=== PATIENT | female | born 1995 | race Caucasian/White ===

== ENCOUNTER 2016-05-07 18:45 | Emergency (ER) | payer BC ==
[~2016-05-07] VITALS: Ht 175.3 cm; Wt 62.6 kg
[~2016-05-07 18:45] MED LIST: COUMADIN1 MG; NAPROSYN500 MG PO; NEXIUM20 MG; PEPCID20 MG PO; SUMATRIPTAN SUC50 MG PO
[2016-05-07 19:39] LABS: CHLORIDE 105 mEq/L (99-109); HEMATOCRIT 39.8 % (36.0-46.0); MCH 31.6 PG (29.0-34.0); MCHC 35.9 G/DL (30.0-36.0); MCV 87.9 FL (83-99); MEAN PLAT.VOLUME 9.9 uM^3 (9.5-12.4); PLATELET COUNT 242 K/uL (156-360); POTASSIUM 3.7 mEq/L (3.7-5.4); RBC DIS.WIDTH-CV 12.3 % (11.8-14.6); RBC DIS.WIDTH-SD 38.9 % (39-53); RED BLOOD COUNT 4.53 M/uL (3.80-5.20); SODIUM 138 mEq/L (136-147); WHITE BLOOD COUNT 6.4 K/uL (4.1-10.2)
[2016-05-07 19:40] LABS: GLUCOSE 90 mg/dL (70-99)
[2016-05-07 19:42] LABS: ANION GAP 10 MEQ/L (2-14)
[2016-05-07 19:44] LABS: GFR ESTIMATE (CALCULATED) > 59 mL/min/
[2016-05-07 19:45] LABS: UREA NITROGEN (BUN) 10 mg/dL (9-23)
[2016-05-07 19:50] LABS: TROP-I INTERPRETATION NEGATIVE; TROPONIN-I < 0.01 ng/mL (0.0-0.30)
[2016-05-08 00:57] LABS: TOTAL BILIRUBIN 0.3 mg/dL (0.0-1.0)
[2016-05-08 00:58] LABS: ALKALINE PHOSPHATASE 60 IU/L (3-129)
[2016-05-08 01:01] LABS: DIRECT BILIRUBIN 0.1 mg/dL (0.0-0.3)
[2016-05-08 01:02] LABS: LIPASE 62 U/L (1.0-51.0)
[2016-05-08] MEDS ORDERED: PRILOSEC OTC20 MG PO (02:01)
[2016-05-08] MEDS ORDERED: ZOFRAN ODT4 MG PO (02:01)
[2016-05-08 02:11] VITALS: BP 108/58
== END 2016-05-08 02:11 | disposition home or self-care (01) ==
LOC: RME 18:45 → EME 18:45 → RME 05-08 02:11
DX: R10.13 Epigastric pain (principal); K21.9 Gastro-esophageal reflux disease without esophagitis; R07.89 Other chest pain; R06.02 Shortness of breath; R19.7 Diarrhea, unspecified
CPT/HCPCS: 71020; 76705; 80048; 80076; 83690; 84484; 85027; 93005; 99281; 99284